=== PATIENT | male | born 1990 | race Caucasian/White ===

== ENCOUNTER 2017-02-17 20:35 | Emergency (ER) | payer MEDICARE | END 2017-02-18 02:03 | disposition home or self-care (01) | LOC: ER 20:35 | DX: M25.561 Pain in right knee (principal); F17.210 Nicotine dependence, cigarettes, uncomplicated; Z79.82 Long term (current) use of aspirin; Z88.8 Allergy status to other drugs, medicaments and biological substances | CPT/HCPCS: 73564; 99283-25 ==